=== PATIENT | female | born 1945 | race Caucasian/White ===

== ENCOUNTER 2023-08-04 12:31 | Emergency (ER) | payer MEDICARE, MEDICAID ==
[~2023-08-04] VITALS: Ht 172.7 cm; Wt 57.0 kg
[2023-08-04 12:37] VITALS: BP 209/93; PULSE 78; RESP 18; TEMP 98; O2SAT 95
[2023-08-04] MEDS ORDERED: LOSA50TA64 PO (12:52)
== END 2023-08-04 13:22 | disposition home or self-care (01) ==
LOC: ER 12:32
DX: I10 Essential (primary) hypertension (principal); Z88.0 Allergy status to penicillin; Z88.2 Allergy status to sulfonamides
CPT/HCPCS: 99283